=== PATIENT | female | born 1945 | race Caucasian/White ===

== ENCOUNTER 2017-03-31 10:08 | Day surgery (SDC) | payer MEDICARE, OTHER ==
[2017-03-30 10:36] VITALS: BMI 21.7
[2017-03-31] MEDS ORDERED: Bupivacaine/Epinephrine 0.25% 30 ML VIAL ONE (10:36)
[2017-03-31] MEDS ORDERED: Fentanyl 100 MCG/2 ML VIAL ONE ×3 (11:01→13:30)
[2017-03-31] MEDS ORDERED: Midazolam HCl 2 mg/2 ml Vial ONE (11:09)
[2017-03-31 11:14] LABS: #Eosinphils 0.1 thou/uL (0.0-0.7); #Lymphocytes 0.8 thou/uL (1.20-3.40); #Monocytes 0.3 thou/uL (0.11-0.59); #Neutrophils 2.8 thou/uL (1.40-6.50); %Basophils 0.7 % (0.0-1.0); %Eosinophils 2.5 % (0.0-10.0); %Lymphocytes 20.7 % (21.0-51.0); %Monocytes 7.1 % (0.0-10.0); Hematocrit 43.8 % (36.0-47.0); Mean Platelet Volume 7.2 fL (7.4-10.4); Red Blood Cell (RBC) Count 4.67 mill/uL (4.20-5.40)
[2017-03-31] MEDS ORDERED: CEFAZOLIN/Water 2 GM/20 ML SYRINGE ONE (11:15)
[2017-03-31 11:32] LABS: Anion Gap 13 mmol/L (10-20); BUN (Urea Nitrogen) 15 mg/dL (9.8-20.1); Calc. Creatinine Clearance 60 mL/min (70-130); Carbon Dioxide 23 mmol/L (23-31); Chloride 107 mmol/L (98-107); Estimated GFR-MDRD 74
--- NOTE | 2017-03-31 12:24 | EKG ---
Test Reason : PREOP Blood Pressure : / mmHG Vent. Rate : 076 BPM Atrial Rate : 076 BPM P-R Int : 176 ms QRS Dur : 076 ms QT Int : 396 ms P-R-T Axes : 069 044 072 degrees QTc Int : 445 ms Normal sinus rhythm Normal ECG No previous ECGs available Confirmed by JASON ORELLANA ([id number]) on 03/31/2017 12:24:15 PM Referred By: SHARON Confirmed By:JASON ORELLANA
[2017-03-31] MEDS ORDERED: HYDROcodone/Acetaminophen 5/325 mg Tablet ONE (14:51)
[2017-03-31] MEDS ORDERED: Lidocaine 1% PF 5 ML VIAL ONE (15:20)
[2017-03-31] MEDS ORDERED: Propofol 200 MG/20 ML VIAL ONE (15:20)
[2017-03-31] MEDS ORDERED: Ondansetron HCl/PF 4 MG/2 ML Vial ONE (15:20)
--- NOTE | 2017-03-31 15:47 | PDOC.OP ---
Operative Note - Operative Note Operative Note: PROCEDURE: Umbilical hernia repair with mesh DATE OF PROCEDURE: 03/31/2017 SURGEON: Martin Gao M.D. PREOPERATIVE DIAGNOSES: Umbilical hernia POSTOPERATIVE DIAGNOSIS: Umbilical hernia 2 HISTORY: Patient is a 72-year-old woman with symptomatic umbilical hernia for which she desires repair. Recommendation was made to proceed with open repair with mesh. PROCEDURE IN DETAIL: After informed consent was obtained and appropriate preoperative antibiotics were administered the patient was taken to the operating room. She was placed in supine position and general anesthesia by laryngeal mask airway was administered. She was prepped and draped in a standard sterile fashion and local anesthesia infused to the skin and subcutaneous tissues at the level of the umbilicus. A umbilical incision was made and dissection carried down to the hernia sac which was dissected free of the surrounding tissues. The patient was found to have a fingertip sized fascial defect with preperitoneal fat protruding. This was reduced and a preperitoneal space created. On creation of the preperitoneal space a tiny fascial defect inferior to the main umbilical hernia was identified with preperitoneal fat herniating through this. This was reduced into the preperitoneal space and the preperitoneal space created circumferentially. A 4.3 cm ventral ex mesh was obtained and placed into the peritoneal space. This covered both the main hernia defect and the tiny fascial defect inferior to it. The small fascial defect was closed with a single throw of the Ethibond suture. The main fascial defect was then closed with figure of 8 Ethibond sutures incorporating the central strap into the fascial closure. The strap was trimmed and the operative sites irrigated and examined for hemostasis which was excellent. The subcutaneous tissues were reapproximated with interrupted 3-0 Monocryl sutures and the skin incisions was closed with a running 4-0 subcuticular Monocryl suture. Dermabond dressing were applied to the skin and once these were dry a pressure dressing was placed and the patient was taken to the recovery room in good condition. ESTIMATED BLOOD LOSS: Minimal SPECIMENS: None
== END 2017-03-31 15:50 | disposition home or self-care (01) ==
LOC: SDC 10:08
PROVIDERS: ATTEND Surgery
PROC: 0WUF0JZ Supplement Abdominal Wall with Synthetic Substitute, Open Approach (ICD-10-PCS; principal; 2017-03-31)
DX: K42.9 Umbilical hernia without obstruction or gangrene (principal); Z88.1 Allergy status to other antibiotic agents; Z88.2 Allergy status to sulfonamides; Z90.710 Acquired absence of both cervix and uterus; Z91.048 Other nonmedicinal substance allergy status; Z98.890 Other specified postprocedural states
CPT/HCPCS: 36415; 80048; 85025; 93005; 93010; 96374; J2001; J2250; J2405; J2704; J3010